=== PATIENT | female | born 1995 | race Two or more races ===

== ENCOUNTER 2024-04-11 14:18 | Emergency (ER) | payer OTHER ==
[~2024-04-11] VITALS: Ht 154.9 cm; Wt 86.0 kg
[2024-04-11 16:28] VITALS: BP 112/64; PULSE 81; RESP 18; TEMP 99.1; O2SAT 97
== END 2024-04-11 16:44 | disposition home or self-care (01) ==
LOC: ER 14:18
DX: O20.0 Threatened abortion (principal); R10.2 Pelvic and perineal pain; Z3A.14 14 weeks gestation of pregnancy
CPT/HCPCS: 36415; 76805; 84702